=== PATIENT | female | born 1955 | race Caucasian/White ===

== ENCOUNTER 2016-07-23 12:35 | Outpatient (CLI) | payer OTHER ==
--- NOTE | 2016-07-23 13:00 | DIAGNOSTIC IMAGING REPORT ---
PROCEDURE: XR CHEST 2 VIEW INDICATION: PREOP EVAL FOR HYSTERECTOMY FOR ENDOMETRIAL CARCINOMA TECHNIQUE: PA and lateral views. COMPARISON: None. FINDINGS: Lungs are clear. Heart and mediastinum are normal. Thorax is normal. IMPRESSION: 1. Negative chest.
== END 2016-07-23 23:00 ==
LOC: XR SRH 12:35
DX: Z01.811 Encounter for preprocedural respiratory examination (principal); I10 Essential (primary) hypertension; C54.1 Malignant neoplasm of endometrium